=== PATIENT | male | born 1985 | race Caucasian/White ===

== ENCOUNTER 2020-09-11 09:47 | Emergency (ER) | payer OTHER ==
[2020-09-11] MEDS ORDERED: DIPHTH,PERTUSS(ACELL),TET 0.5 ML DISP.SYRIN IM ONE ×2 (10:04→10:16)
[2020-09-11 10:15] VITALS: BP 148/93; PULSE 85; TEMP 98.7; BMI 29.2
== END 2020-09-11 11:26 | disposition home or self-care (01) ==
LOC: FER 09:47
PROC: 0HQGXZZ Repair Left Hand Skin, External Approach (ICD-10-PCS; principal; 2020-09-11)
PROC: 3E0234Z Introduction of Serum, Toxoid and Vaccine into Muscle, Percutaneous Approach (ICD-10-PCS; 2020-09-11)
DX: S61.215A Laceration without foreign body of left ring finger without damage to nail, initial encounter (principal)
CPT/HCPCS: 73130-TC-LT-FY; 90715; 99284-25